=== PATIENT | female | born 1970 | race Caucasian/White ===

== ENCOUNTER 2016-11-21 21:06 | Emergency (ER) | payer OTHER ==
[~2016-11-21] VITALS: Ht 162.6 cm; Wt 108.4 kg
[2016-11-21 21:08] VITALS: BP 149/67
[2016-11-21] MEDS ORDERED: NACL 0.9% 1,000 ML IV ONE (21:20)
--- NOTE | 2016-11-21 21:20 | NUR ---
TO ER BED 5
--- NOTE | 2016-11-21 21:30 | NUR ---
PATIENT PRESENTS TO ED WITH C/O RUQ ABD PAIN . PT DENIES N/V/D; SKIN IS PINK/WARM/DRY; AAOX4 WITH EVEN AND STEADY GAIT; LUNGS CLEAR BL; HR EVEN AND REGULAR; PT DENIES ANY FEVER, CP, SOB, OR COUGH AT THIS TIME; PATIENT STATES PAIN OF 6/10 AT THIS TIME; VSS; PATIENT POSITIONED FOR COMFORT; HOB ELEVATED; BEDRAILS UP X2; BED DOWN. ER MD MADE AWARE OF PT STATUS.
[2016-11-21 21:50] LABS: BASOPHILS # (AUTO) 0.3 K/uL (0.00-0.22); EOSINOPHILS # (AUTO) 0.1 K/uL (0-0.4); HEMOGLOBIN 13.2 g/dL (12.0-16.0); MEAN CORPUSCULAR HEMOGLOBIN 30 pg (27-31); MEAN CORPUSCULAR HGB CONC 33 g/dL (33-37); MEAN CORPUSCULAR VOLUME 92 fL (80-94); MONOCYTES # (AUTO) 0.6 K/uL (0.8-1.0); NEUTROPHILS # (AUTO) 7.7 K/uL (1.8-7.7); PLATELET COUNT (AUTO) 241 K/uL (140-450); RED BLOOD CELL COUNT(AUTO) 4.36 MIL/uL (4.20-5.40); RED CELL DISTRIBUTION WIDTH 13.9 % (11.6-13.7); WHITE BLOOD COUNT (AUTO) 10.7 K/uL (4.8-10.8)
[2016-11-21 22:08] LABS: ANION GAP 13.7 (8-16); CARBON DIOXIDE 26.8 mmol/L (21-32); CREATININE 0.8 mg/dL (0.6-1.3); POTASSIUM 3.5 mmol/L (3.5-5.1)
[2016-11-21 22:16] LABS: ALBUMIN 3.3 g/dL (3.4-5.0); TOTAL BILIRUBIN 0.2 mg/dL (0.0-1.0)
--- NOTE | 2016-11-21 22:47 | NUR ---
Patient appears to be resting comfortably in bed. Vital Signs within normal limits. Respirations even and unlabored.
[2016-11-21 23:47] LABS: APPEARANCE,URINE CLEAR (CLEAR); BILIRUBIN,URINE NEGATIVE (NEGATIVE); BLOOD, URINE NEGATIVE (NEGATIVE); COLOR,URINE YELLOW (YELLOW); LEUKOCYTE ESTERASE ,URINE NEGATIVE (NEGATIVE); NITRITE, URINE NEGATIVE (NEGATIVE); UGLUCOSE NEGATIVE (NEGATIVE)
[2016-11-21 23:55] LABS: RBC,URINE 0-5 (RARE) /HPF (0-5); WBC,URINE 0-5 (RARE) /HPF (0-5)
--- NOTE | 2016-11-22 00:16 | NUR ---
LATE ENTRY: DISCONTINUED NS IVF AT 0016. 350CC NS INFUSED.
--- NOTE | 2016-11-22 00:16 | NUR ---
Patient discharged with v/s stable. Written and verbal after care instructions given and explained. Patient verbalized understanding. Ambulatory with steady gait. All questions addressed prior to discharge. Advised to follow up with PMD.
[2016-11-22 00:17] VITALS: BP 126/81
== END 2016-11-22 00:17 | disposition home or self-care (01) ==
LOC: MED 21:06
DX: D35.01 Benign neoplasm of right adrenal gland (principal); Z88.1 Allergy status to other antibiotic agents; Z88.8 Allergy status to other drugs, medicaments and biological substances
CPT/HCPCS: 36415; 80053; 81001; 81025; 85025; 96360; 96361; 99285

== ENCOUNTER 2017-11-25 19:26 | Emergency (ER) | payer OTHER ==
[~2017-11-25] VITALS: Ht 162.6 cm; Wt 111.7 kg
[2017-11-25 19:30] VITALS: BP 127/83
--- NOTE | 2017-11-25 19:48 | NUR ---
pt ambulated to er bed 9.
--- NOTE | 2017-11-25 19:52 | NUR ---
Jasen riggs in ED - 11/25/17 at 2032 by OSIEL PT TO ER BED 9
--- NOTE | 2017-11-25 19:52 | NUR ---
PT BIB SELF C/O VAGINAL BURNING/PAIN FOR 4 DAYS. PT HAS BURNING ON URINATION WELL. PT DENIES VAGINAL BLEEDING OR BLOOD IN URINE. DENIES FEVER, CHILLS, N/V/D. PT STATES SHE HAD COLONOSCOPY A WEEK AGO AND STARTED HAVING SYMPTOMS AFTER. PT WAS SEEN IN URGENT CARE AND REFERED TO ED. [facility] YESICA LUEVANO
[2017-11-25] MEDS ORDERED: PHENAZOPYRIDINE 100 MG TAB PO ONE (20:50)
[2017-11-25] MEDS ORDERED: cefTRIAXone 1,000 MG in LIDOCAINE MPF 1% - 5 mL VIAL 2.1 ML IM ONE (20:50)
[2017-11-25 21:29] VITALS: BP 125/83
--- NOTE | 2017-11-25 21:29 | NUR ---
Patient discharged with v/s stable. Written and verbal after care instructions given and explained. Patient alert, oriented and verbalized understanding of instructions. Ambulatory with steady gait. All questions addressed prior to discharge. ID band removed. Patient advised to follow up with PMD. Rx of CIPRO, PYRIDIUM given. Patient educated on indication of medication including possible reaction and side effects. Opportunity to ask questions provided and answered.
== END 2017-11-25 21:29 | disposition home or self-care (01) ==
LOC: MED 19:26
DX: N39.0 Urinary tract infection, site not specified (principal); J45.909 Unspecified asthma, uncomplicated; Z88.1 Allergy status to other antibiotic agents; Z88.8 Allergy status to other drugs, medicaments and biological substances
CPT/HCPCS: 81002; 81025; 87086; 87186; 96372; 99284; J0696; J2001; 99283

== ENCOUNTER 2018-01-21 23:24 | Emergency (ER) | payer OTHER ==
[~2018-01-21] VITALS: Ht 162.6 cm; Wt 111.1 kg
[2018-01-21 23:28] VITALS: BP 116/77
--- NOTE | 2018-01-21 23:28 | NUR ---
TO BED # 1 AMBULATORY, REPORT GIVEN TO IVONE MOJICA
--- NOTE | 2018-01-21 23:28 | NUR ---
47/F CAME IN W C/O PAINFUL URINATION X 1 WEEK AND LEFT FLANK PAIN X TODAY. PER PT SHE WAS SEEN BY PMD AND WAS GIVEN MACROBID, ON HER 5TH DAY FOR 7 DAY COURSE. REPORTS PERSISTING DYSURIA AND LEFT FLANK PAIN STARTED TODAY. DENIES HEMATURIA, N/V, FEVER/CHILLS. PMH: REOCURRING UTI, ASTHMA
[2018-01-22 00:21] LABS: APPEARANCE,URINE CLEAR (CLEAR); BILIRUBIN,URINE SMALL (NEGATIVE); BLOOD, URINE TRACE-I (NEGATIVE); COLOR,URINE ORANGE (YELLOW); LEUKOCYTE ESTERASE ,URINE NEGATIVE (NEGATIVE); NITRITE, URINE POSITIVE (NEGATIVE); UGLUCOSE 2+ (NEGATIVE)
--- NOTE | 2018-01-22 00:55 | NUR ---
Dr. Holley evaluating patient at bedside
[2018-01-22 01:02] LABS: RBC,URINE 0-5 (RARE) /HPF (0-5); WBC,URINE 0-5 (RARE) /HPF (0-5)
[2018-01-22] MEDS ORDERED: CIPROFLOXACIN 250 MG TAB PO ONE (01:15)
[2018-01-22] MEDS ORDERED: KETOROLAC 60 MG/2 ML VIAL IM ONE (01:20)
--- NOTE | 2018-01-22 01:45 | NUR ---
Patient discharged with v/s stable. Written and verbal after care instructions given and explained. Patient alert, oriented and verbalized understanding of instructions. Ambulatory with steady gait. All questions addressed prior to discharge. ID band removed. Patient advised to follow up with PMD. Rx of CIPRO, PHENAZOPYRIDINE given. Patient educated on indication of medication including possible reaction and side effects. Opportunity to ask questions provided and answered.
[2018-01-22 01:53] VITALS: BP 122/82
== END 2018-01-22 01:45 | disposition home or self-care (01) ==
LOC: MED 23:24
DX: N39.0 Urinary tract infection, site not specified (principal); J45.909 Unspecified asthma, uncomplicated; Z88.1 Allergy status to other antibiotic agents; Z88.8 Allergy status to other drugs, medicaments and biological substances
CPT/HCPCS: 81001; 81025; 87086; 96372; 99283; J1885

== ENCOUNTER 2022-04-30 12:17 | Emergency (ER) | payer OTHER ==
[~2022-04-30] VITALS: Ht 162.6 cm; Wt 116.1 kg
[2022-04-30 12:23] VITALS: BP 130/87
--- NOTE | 2022-04-30 12:51 | NUR ---
ASSUMED PATIENT CARE, NURSING ASSESSMENT COMPLETED.
[2022-04-30 13:09] LABS: BASOPHILS # (AUTO) 0.1 K/uL (0.00-0.22); EOSINOPHILS # (AUTO) 0.1 K/uL (0-0.4); HEMATOCRIT 43.4 % (36-48); HEMOGLOBIN 14.2 g/dL (12.0-16.0); LYMPHOCYTES # (AUTO) 1.8 K/uL (2.5-16.5); LYMPHOCYTES % (AUTO) 26.9 % (20.5-51.1); MEAN CORPUSCULAR HEMOGLOBIN 30 pg (27-31); MEAN CORPUSCULAR HGB CONC 33 g/dL (33-37); MEAN CORPUSCULAR VOLUME 91.3 fL (80-94); MONOCYTES # (AUTO) 0.4 K/uL (0.8-1.0); MONOCYTES % (AUTO) 6.4 % (1.7-9.3); NEUTROPHILS # (AUTO) 4.3 K/uL (1.8-7.7); NEUTROPHILS % (AUTO) 64.7 % (42.2-75.2); PLATELET COUNT (AUTO) 220 K/uL (140-450); RED BLOOD CELL COUNT(AUTO) 4.75 MIL/uL (4.20-5.40); RED CELL DISTRIBUTION WIDTH 15.1 % (11.6-13.7); WHITE BLOOD COUNT (AUTO) 6.6 K/uL (4.8-10.8)
[2022-04-30 13:36] LABS: ANION GAP 12.3 (8-16); ASPARTATE AMINOTRANSFERASE 21 U/L (15-37); CARBON DIOXIDE 29.5 mmol/L (21-32); CHLORIDE 102 mmol/L (98-107); CREATININE 0.9 mg/dL (0.6-1.3); GFR ARICAN-AMERICAN 85 mL/min (>90); GLUCOSE 110 mg/dL (74-106); POTASSIUM 3.8 mmol/L (3.5-5.1); SODIUM SERUM 140 mmol/L (136-145); TOTAL BILIRUBIN 0.5 mg/dL (0.0-1.0); UREA NITROGEN, BLOOD 15 mg/dL (7-18)
[2022-04-30 14:40] VITALS: BP 127/73
--- NOTE | 2022-04-30 14:48 | NUR ---
MD AT BEDSIDE, UPDATING PATIENT ACCORDINGLY.
[2022-04-30] MEDS ORDERED: LID5T TP (14:52)
--- NOTE | 2022-04-30 14:58 | NUR ---
Patient discharged with v/s stable. Written and verbal after care instructions ABOUT CERVICAL SPRAIN, PALPITATIONS AND TENSION HEADACHE given and explained. Patient alert, oriented and verbalized understanding of instructions. Ambulatory with steady gait. All questions addressed prior to discharge. ID band removed. Patient advised to follow up with PMD. Rx of LIDODERM given. Patient educated on indication of medication including possible reaction and side effects. Opportunity to ask questions provided and answered.
[2022-04-30 16:07] LABS: APPEARANCE,URINE CLEAR (CLEAR); BILIRUBIN,URINE NEGATIVE (NEGATIVE); BLOOD, URINE TRACE-I (NEGATIVE); COLOR,URINE YELLOW (YELLOW); LEUKOCYTE ESTERASE ,URINE NEGATIVE (NEGATIVE); NITRITE, URINE NEGATIVE (NEGATIVE); UGLUCOSE NEGATIVE (NEGATIVE)
== END 2022-04-30 14:57 | disposition home or self-care (01) ==
LOC: MED 12:17
DX: S16.1XXA Strain of muscle, fascia and tendon at neck level, initial encounter (principal); R51.9 Headache, unspecified; R53.1 Weakness; Z85.3 Personal history of malignant neoplasm of breast; Z98.890 Other specified postprocedural states; Z88.1 Allergy status to other antibiotic agents; Z88.2 Allergy status to sulfonamides; Z79.899 Other long term (current) drug therapy; X58.XXXA Exposure to other specified factors, initial encounter; Y93.89 Activity, other specified; Y92.89 Other specified places as the place of occurrence of the external cause; Y99.8 Other external cause status
CPT/HCPCS: 36415; 70450; 71045; 80053; 81003; 84484; 85025; 93005; 99285